=== PATIENT | male | born 1980 | race Caucasian/White ===

== ENCOUNTER 2024-10-28 21:48 | Emergency (ER) | payer SELFPAY ==
[~2024-10-28] VITALS: Ht 177.8 cm; Wt 102.3 kg
[2024-10-28] MEDS ORDERED: PANT20TA51 PO (21:58)
[2024-10-28] MEDS ORDERED: PANT20TA6 PO (21:58)
[2024-10-28 22:01] VITALS: BP 178/99; TEMP 99.6; O2SAT 95
== END 2024-10-28 23:21 | disposition left against medical advice (07) ==
LOC: M ED 21:48
DX: Z53.21 Procedure and treatment not carried out due to patient leaving prior to being seen by health care provider (principal)